=== PATIENT | male | born 1955 | race Caucasian/White ===

== ENCOUNTER → 2018-06-29 | Outpatient (CLI) | payer OTHER ==
--- NOTE | 2018-06-30 09:08 | XR ---
EXAMINATION TYPE: XR chest 2V DATE OF EXAM: 06/29/2018 COMPARISON: NONE TECHNIQUE: PA and lateral views submitted. HISTORY: Cough FINDINGS: No pneumothorax or pleural effusion. Hypertrophic and degenerative change of the spine. Arthropathy o f the shoulders. Limited inspiration with subsegmental changes at both lung bases. IMPRESSION: 1. Exam limited by inspiration demonstrates a prominent central interstitial pattern and basilar subs egmental consolidation. Mild venous congestion, pneumonitis or bronchitis in the differential diagnos is. Infiltrate at the lung bases suggestive..
== END ==
LOC: RADXRMAIN 16:01
PROVIDERS: ATTEND Internal Medicine
DX: R05 Cough (principal)
CPT/HCPCS: 71046

== ENCOUNTER 2018-10-02 05:40 | Emergency (ER) | payer MEDICARE ==
[2018-10-02] MEDS ORDERED: HYDROcodone/APAP 5-325MG 1 EACH TAB PO STA (05:59)
[2018-10-02] MEDS ORDERED: KETOROLAC 30 MG/ML 1 ML VIAL IVP STA (05:59)
--- NOTE | 2018-10-02 06:05 | ED ---
Upper Extremity HPI - General Source: patient, family, RN notes reviewed Mode of arrival: ambulatory Limitations: no limitations <Leopoldo Salmeron - Last Filed: 10/02/18 11:05> <Michael Gannon - Last Filed: 10/02/18 17:02> - General Chief Complaint: Extremity Injury, Upper Stated Complaint: arm pain Time Seen by Provider: 10/02/18 05:53 - History of Present Illness Initial Comments: This a 63-year-old male presents emergency Department chief been a right arm pain. Patient states that the pain is severe in nature started last couple days. Patient states he cannot tolerate this time. He does admit that he jumpe d out and his arm deformity states it feels very similar. He states the pain starts in his right elbow there is pain from his wrist all way to his axilla. Patient denies any discoloration swelling or paresthesias. Denies any trauma no chest pain or shortness breath. Patient states the pain is sometimes worse with any sort of touching or movement of his right elbow. (Leopoldo Salmeron) - Related Data Home Medications Medication Instructions Recorded Confirmed Atorvastatin Calcium [Lipitor] 10 mg PO HS 06/26/15 10/02/18 amLODIPine [Norvasc] 10 mg PO QAM 06/26/15 10/02/18 Levothyroxine Sodium [Synthroid] 150 mcg PO DAILY 10/02/18 10/02/18 Previous Rx's Medication Instructions Recorded Hydrocodone/Acetaminophen [[place] 1 tab PO Q6HR PRN #12 tab 10/02/18 5-325] Ibuprofen [Motrin] 600 mg PO Q8HR PRN #30 tab 10/02/18 Allergies Allergy/AdvReac Type Severity Reaction Status Date / Time morphine Allergy Unknown Verified 10/02/18 07:24 Review of Systems ROS Other: All systems not noted in ROS Statement are negative. <Leopoldo Salmeron - Last Filed: 10/02/18 11:05> ROS Other: All systems not noted in ROS Statement are negative. <Michael Gannon - Last Filed: 10/02/18 17:02> ROS Statement: Those systems with pertinent positive or pertinent negative responses have been documented in the HPI. Past Medical History Past Medical History: Hyperlipidemia, Hypertension, Thyroid Disorder Additional Past Medical History / Comment(s): GOUT History of Any Multi-Drug Resistant Organisms: None Reported Past Surgical History: Back Surgery, Hernia Repair Past Psychological History: No Psychological Hx Reported Smoking Status: Never smoker Past Alcohol Use History: Rare Past Drug Use History: None Reported <Leopoldo Salmeron - Last Filed: 10/02/18 11:05> General Exam Limitations: no limitations General appearance: alert, in no apparent distress Head exam: Present: atraumatic, normocephalic, normal inspection Neck exam: Present: normal inspection, full ROM. Absent: tenderness, meningismus, lymphadenopathy Respiratory exam: Present: normal lung sounds bilaterally. Absent: respiratory distress, wheezes, rales, rhonchi, stridor Cardiovascular Exam: Present: regular rate, normal rhythm, normal heart sounds. Absent: systolic murmur, diastolic murmur, rubs, gallop, clicks Extremities exam: Present: other (Tenderness to palpation of the right elbow and just proximal and distal this there is minimal swelling no erythema increase in warmth compared to the left, pulses equal bilaterally neurovascular intact) Neurological exam: Present: alert, oriented X3, CN II-XII intact, reflexes no rmal. Absent: motor sensory deficit Skin exam: Present: warm, dry, intact, normal color. Absent: rash <Leopoldo Salmeron - Last Filed: 10/02/18 11:05> Course <Michael Gannon - Last Filed: 10/02/18 17:02> Vital Signs 10/02/18 10/02/18 10/02/18 05:45 07:37 10:20 Temperature 97.5 F L 97.5 F L Pulse Rate 61 65 48 L Respiratory 20 18 Rate Blood Pressure 179/76 164/78 131/76 O2 Sat by Pulse 97 97 92 L Oximetry 10/02/18 11:21 Temperature 98.0 F Pulse Rate 56 L Respiratory 16 Rate Blood Pressure 155/81 O2 Sat by Pulse 95 Oximetry - Reevaluation(s) Reevaluation #1: 10/02/18 17:02 PA supervision: I proceeded [id number] evaluation the patient several occasions did present with complaints of right arm pain. The pain was reproducible on palpation of the rotator cuff and triceps and some proximal biceps tenderness. No neck or back pain at all. The workup was performed I did review the workup patient will be discharged with follow-up with his doctor did recommend an outpatient stress test. (Michael Gannon) Medical Decision Making - Lab Data Result diagrams: 10/02/18 06:25 10/02/18 06:25 <Leopoldo Salmeron - Last Filed: 10/02/18 11:05> - Lab Data Result diagrams: 10/02/18 06:25 10/02/18 06:25 <Michael Gannon - Last Filed: 10/02/18 17:02> - Medical Decision Making 63-year-old male presented for right arm pain. This is reproducible pain and C&C muscular nature. Patient did have complete workup including labs x-ray, EKG and repeat troponin with no acute findings. Patient did have some mild EKG changes and no old comparison though this felt to be chronic. Patient is advised follow-up outpatient for repeat EKG and stress test if he has any chest discomfort he is return here no chest pain prior or during the ER visit. (Leopoldo Salmeron) - Lab Data Lab Results 10/02/18 10/02/18 10/02/18 Range/Units 06:25 06:25 06:25 WBC 10.3 (3.8-10.6) k/uL RBC 5.78 (4.30-5.90) m/uL Hgb 15.6 (13.0-17.5) gm/dL Hct 47.4 (39.0-53.0) % MCV 82.1 (80.0-100.0) fL MCH 27.0 (25.0-35.0) pg MCHC 32.9 (31.0-37.0) g/dL RDW 15.2 (11.5-15.5) % Plt Count 224 (150-450) k/uL Neutrophils % 58 % Lymphocytes % 27 % Monocytes % 8 % Eosinophils % 4 % Basophils % 1 % Neutrophils # 5.9 (1.3-7.7) k/uL Lymphocytes # 2.8 (1.0-4.8) k/uL Monocytes # 0.8 (0-1.0) k/uL Eosinophils # 0.4 (0-0.7) k/uL Basophils # 0.1 (0-0.2) k/uL Sodium 138 (137-145) mmol/L Potassium 4.0 (3.5-5.1) mmol/L Chloride 103 (98-107) mmol/L Carbon Dioxide 28 (22-30) mmol/L Anion Gap 7 mmol/L BUN 19 (9-20) mg/dL Creatinine 0.92 (0.66-1.25) mg/dL Est GFR (CKD-EPI)AfAm >90 (>60 ml/min/1.73 sqM) Est GFR (CKD-EPI)NonAf 87 (>60 ml/min/1.73 sqM) Glucose 156 H (74-99) mg/dL Plasma Lactic Acid Sidney 1.2 (0.7-2.0) mmol/L Uric Acid 7.3 (3.5-8.5) mg/dL Calcium 9.3 (8.4-10.2) mg/dL Troponin I (0.000-0.034) ng/mL C-Reactive Protein 8.8 (<10.0) mg/L 10/02/18 10/02/18 Range/Units 06:25 10:04 WBC (3.8-10.6) k/uL RBC (4.30-5.90) m/uL Hgb (13.0-17.5) gm/dL Hct (39.0-53.0) % MCV (80.0-100.0) fL MCH (25.0-35.0) pg MCHC (31.0-37.0) g/dL RDW (11.5-15.5) % Plt Count (150-450) k/uL Neutrophils % % Lymphocytes % % Monocytes % % Eosinophils % % Basophils % % Neutrophils # (1.3-7.7) k/uL Lymphocytes # (1.0-4.8) k/uL Monocytes # (0-1.0) k/uL Eosinophils # (0-0.7) k/uL Basophils # (0-0.2) k/uL Sodium (137-145) mmol/L Potassium (3.5-5.1) mmol/L Chloride (98-107) mmol/L Carbon Dioxide (22-30) mmol/L Anion Gap mmol/L BUN (9-20) mg/dL Creatinine (0.66-1.25) mg/dL Est GFR (CKD-EPI)AfAm (>60 ml/min/1.73 sqM) Est GFR (CKD-EPI)NonAf (>60 ml/min/1.73 sqM) Glucose (74-99) mg/dL Plasma Lactic Acid Sidney (0.7-2.0) mmol/L Uric Acid (3.5-8.5) mg/dL Calcium (8.4-10.2) mg/dL Troponin I 0.015 <0.012 (0.000-0.034) ng/mL C-Reactive Protein (<10.0) mg/L - EKG Data EKG Comments: EKG performed sinus bradycardia rate of 48 VT 138 QRS 98 QT status QTC 46/434e no specific changes in V2-V5 (Leopoldo Salmeron) Disposition Is patient prescribed a controlled substance at d/c from ED?: Yes When asked, does pt state using other controlled substances?: No If prescribed controlled substance>3 days was MAPS reviewed?: Prescribed <3 Days If opioid is for acute pain is fill amount 7 days or less?: Yes If Rx opioid, was Start Talking consent form obtained?: Yes Time of Disposition: 11:12 <Leopoldo Salmeron - Last Filed: 10/02/18 11:05> <Michael Gannon - Last Filed: 10/02/18 17:02> Clinical Impression: Right arm pain, Musculoskeletal pain of right upper extremity Disposition: HOME SELF-CARE Condition: Stable Instructions (If sedation given, give patient instructions): Arm Pain (ED) Additional Instructions: Please return to the Emergency Department if symptoms worsen or any other concerns. Prescriptions: Ibuprofen [Motrin] 600 mg PO Q8HR PRN #30 tab PRN Reason: Pain Hydrocodone/Acetaminophen [[place] 5-325] 1 tab PO Q6HR PRN #12 tab PRN Reason: Pain Referrals: Shelton Roblero MD [Primary Care Provider] - 1-2 days Kieran Keith MD [STAFF PHYSICIAN] - 1-2 days
[2018-10-02 06:41] LABS: Basophils # (A) 0.1 k/uL (0-0.2); Basophils % (A) 1 %; Eosinophils # (A) 0.4 k/uL (0-0.7); Eosinophils % (A) 4 %; HCT 47.4 % (39.0-53.0); HGB 15.6 gm/dL (13.0-17.5); Lymphocytes # (A) 2.8 k/uL (1.0-4.8); Lymphocytes % (A) 27 %; MCHC 32.9 g/dL (31.0-37.0); MCV 82.1 fL (80.0-100.0); Mean Platelet Volume 8.7; Monocytes # (A) 0.8 k/uL (0-1.0); Monocytes % (A) 8 %; Neutrophils # (A) 5.9 k/uL (1.3-7.7); Neutrophils % (A) 58 %; Platelet Count 224 k/uL (150-450); RBC 5.78 m/uL (4.30-5.90); RDW 15.2 % (11.5-15.5); WBC 10.3 k/uL (3.8-10.6)
--- NOTE | 2018-10-02 06:45 | XR ---
EXAM: XR Right Elbow Complete, 3 or More Views CLINICAL HISTORY: right elbow pain. No known injury. TECHNIQUE: Frontal, lateral and oblique views of the right elbow. COMPARISON: No relevant prior studies available. FINDINGS: Bones/joints: Unremarkable. No acute fracture. No dislocation. Soft tissues: Unremarkable. IMPRESSION: No acute fracture
[2018-10-02 06:49] LABS: African American GFR (CKD) >90 (>60 ml/min/1.73 sqM); Anion Gap 7 mmol/L; Blood Urea Nitrogen 19 mg/dL (9-20); C Reactive Protein 8.8 mg/L (<10.0); Calcium 9.3 mg/dL (8.4-10.2); Carbon Dioxide 28 mmol/L (22-30); Chloride 103 mmol/L (98-107); Glucose 156 mg/dL (74-99); Sodium 138 mmol/L (137-145); Uric Acid 7.3 mg/dL (3.5-8.5)
[2018-10-02] MEDS ORDERED: ONDANSETRON 4 MG/2 ML VIAL IVP STA (07:12)
[2018-10-02] MEDS ORDERED: methylPREDNISolone SOD SUCCI 125 MG/2 ML VIAL IV STA (07:12)
[2018-10-02] MEDS ORDERED: HYDROmorphone 0.5 MG/0.5 ML SYRINGE IVP STA (07:12)
--- NOTE | 2018-10-02 09:26 | XR ---
EXAMINATION TYPE: XR chest 2V DATE OF EXAM: 10/02/2018 COMPARISON: 06/29/2018 TECHNIQUE: PA and lateral views submitted. HISTORY: Pain FINDINGS: The lungs are clear and there is no pneumothorax, pleural effusion, or focal pneumonia. Prominence of the upper mediastinum likely represents positioning and vasculature. Findings similar to the prior exam. Hypertrophic and degenerative change of the vertebral column. IMPRESSION: 1. No acute process.
[2018-10-02 11:25] VITALS: BP 155/81; PULSE 56; RESP 16; TEMP 98
== END 2018-10-02 11:21 | disposition home or self-care (01) ==
LOC: EC 05:40
DX: M79.601 Pain in right arm (principal); R94.31 Abnormal electrocardiogram [ECG] [EKG]; M79.89 Other specified soft tissue disorders; M25.521 Pain in right elbow; M79.631 Pain in right forearm; E78.5 Hyperlipidemia, unspecified; I10 Essential (primary) hypertension; E07.9 Disorder of thyroid, unspecified; Z88.5 Allergy status to narcotic agent; Z79.890 Hormone replacement therapy; Z79.899 Other long term (current) drug therapy; Z87.39 Personal history of other diseases of the musculoskeletal system and connective tissue; Y93.39 Activity, other involving climbing, rappelling and jumping off
CPT/HCPCS: 36415; 80048; 83605; 84550; 84484; 85025; 86140; 73080; 71046; 99284; 96374; 96375 ×3; J2930; J2405; J1885; J1170

== ENCOUNTER 2020-02-14 06:10 | Day surgery (SDC) | payer MEDICARE ==
[2020-02-10 15:30] VITALS: BMI 39.4
[~2020-02-14 06:10] MED LIST: ALPRAZolam 0.25 MG TAB PO PRN; ALPRAZolam 0.5 MG TAB PO PRN; ASPIRIN 325 MG TAB PO STA; NITROGLYCERIN SL TABS 0.4 MG TAB SUBLINGUAL PRN; SODIUM CHLORIDE 0.9% 1,000 ML in EMPTY BAG 1 BAG IV ONE
[2020-02-14] MEDS ORDERED: SODIUM CHLORIDE 0.9% 1,000 ML IV ONE (06:38)
[2020-02-14 06:57] LABS: Basophils # (A) 0.1 k/uL (0-0.2); Basophils % (A) 1 %; Eosinophils # (A) 0.4 k/uL (0-0.7); Eosinophils % (A) 5 %; HCT 47.1 % (39.0-53.0); HGB 15.2 gm/dL (13.0-17.5); Lymphocytes # (A) 2.3 k/uL (1.0-4.8); Lymphocytes % (A) 28 %; MCHC 32.3 g/dL (31.0-37.0); MCV 83.5 fL (80.0-100.0); Mean Platelet Volume 9.1; Monocytes # (A) 0.5 k/uL (0-1.0); Monocytes % (A) 6 %; Neutrophils # (A) 4.9 k/uL (1.3-7.7); Neutrophils % (A) 59 %; Platelet Count 184 k/uL (150-450); RBC 5.63 m/uL (4.30-5.90); RDW 14.6 % (11.5-15.5); WBC 8.4 k/uL (3.8-10.6)
[2020-02-14 07:06] LABS: Glucose,Whole Blood 159 mg/dL (75-99)
[2020-02-14 07:08] LABS: African American GFR (CKD) >90 (>60 ml/min/1.73 sqM); Anion Gap 3 mmol/L; Blood Urea Nitrogen 16 mg/dL (9-20); Calcium 8.8 mg/dL (8.4-10.2); Carbon Dioxide 30 mmol/L (22-30); Chloride 105 mmol/L (98-107); Glucose 177 mg/dL (74-99); Non-African American GFR(CKD) 82 (>60 ml/min/1.73 sqM); Sodium 138 mmol/L (137-145)
[2020-02-14 07:09] VITALS: RESP 16; TEMP 98.2
[2020-02-14 07:10] LABS: Potassium 4.9 mmol/L (3.5-5.1)
[2020-02-14] MEDS ORDERED: VERAPAMIL 2.5 MG/ML 2 ML AMP ONE (07:28)
[2020-02-14] MEDS ORDERED: LIDOCAINE 1% INJ 10MG/ML (20 ML MDV) ONE (07:28)
[2020-02-14] MEDS ORDERED: fentaNYL (PF) 50 MCG/ML 2 ML AMP ONE (07:29)
[2020-02-14] MEDS ORDERED: fentaNYL (PF) 50 MCG/ML 2 ML AMP IV ONE (07:35)
[2020-02-14] MEDS ORDERED: LIDOCAINE 1% INJ 10MG/ML (20 ML MDV) SQ ONE (07:36)
[2020-02-14] MEDS ORDERED: MIDAZOLAM 2 MG/2 ML VIAL IV ONE (07:39)
[2020-02-14] MEDS ORDERED: VERAPAMIL SYRINGE (5 MG/10 ML) INTRAARTER ONE ×2 (07:40→07:41)
[2020-02-14] MEDS ORDERED: HEPARIN SODIUM 1,000 UN/ML (10ML VL) IV ONE (07:47)
[2020-02-14] MEDS ORDERED: IOPAMIDOL-370 125ML BTL INJ ONE (07:53)
[2020-02-14] MEDS ORDERED: RX INFO: IV CONTRAST WAS GIVEN 1 EACH MISC MISCELLANE PRN (08:16)
[2020-02-14] MEDS ORDERED: SODIUM CHLORIDE 0.9% 1,000 ML IV SCH (08:30)
[2020-02-14] MEDS ORDERED: NON FORMULARY DRUG (Levothyroxine Sodium [Synthroid] 150 MCG Tablet) PO SCH (09:00)
[2020-02-14] MEDS ORDERED: METOPROLOL TARTRATE 25 MG TAB PO SCH (09:00)
[2020-02-14] MEDS ORDERED: ATORVASTATIN 40 MG TAB PO SCH (09:00)
[2020-02-14] MEDS ORDERED: amLODIPine 10 MG TAB PO SCH (09:00)
--- NOTE | 2020-02-14 09:29 | CC ---
CARDIAC CATHETERIZATION REPORT Mr. Hurst is a 65-year-old male with known history of hypertension, hyperlipidemia, and diabetes mellitus who recently underwent an EKG that showed anterolateral wall T- wave inversion. The patient had no associated symptoms. In view of his risk factors and his presentation, recommendation made regarding cardiac catheterization. The procedures, risks, and complication were discussed with the patient who is in full understanding and agreement. PROCEDURE: Patient was brought to the grass farm laborer in a fasting semi-sedated state after receiving fentanyl and Benadryl and achieving moderate conscious sedated state. Using Xylocaine anesthesia and Seldinger technique, a 6-Rwandan sheath was introduced in the right radial artery. Selective right and left coronary angiography performed using 5-Rwandan 3.5 bend right and left Izabella catheter, multiple views of the coronary artery including hemiaxial views were obtained. Following that, a 5-[place]wandan tight pigtail catheter was introduced into the left ventricle and a 30-degree WEINSTEIN view of the left ventricle was obtained. Following that, catheter and sheaths were removed. Hemostasis was obtained with deployment of a TR band. There was no immediate complication. Patient is returned to his room in stable condition. Of note, the patient had received 5000 units of intravenous heparin as well as intra-arterial verapamil. FINDINGS: FLUOROSCOPY: There was calcification involving the right coronary artery and the left anterior descending artery. LEFT MAIN: This is a large-sized vessel, bifurcating into left circumflex, left anterior artery. Left main coronary artery has no significant obstructive disease. LEFT ANTERIOR DESCENDING ARTERY: This is a large-sized vessel, reaching toward the apex with a wraparound apex segment. The left anterior descending artery has mild plaque approximately 10% to 20%. The rest of the vessel has no high-grade stenosis. LEFT CIRCUMFLEX: This is a nondominant large size vessel, giving rise to 3 obtuse marginal branch. The first one is very proximal. The left anterior descending artery has no evidence of high-grade stenosis. RIGHT CORONARY ARTERY: This is a large dominant vessel, heavily calcified proximal, very tortuous in the proximal segment. He has an area of stenosis of 60%-70% plaque in the proximal segment. The rest of the vessel has no high-grade stenosis. LEFT VENTRICULOGRAM: Left ventriculogram is performed in 30-degree WEINSTEIN view revealed normal size systolic function. Ejection fraction is 55%-60%. There was no significant mitral regurgitation. HEMODYNAMICS: There was no gradient across the aortic valve. The left ventricular end- diastolic pressure was 14 - 16 mmHg. CONCLUSION: 1. Heavily calcified right coronary artery with severe tortuosity proximally and has moderate severe stenosis in the proximal segment. 2. Mild disease in the LAD. 3. Normal left ventricular size and systolic function. RECOMMENDATION: At this time I will maximize his medical therapy and reassess his right coronary artery lesion to see if a percutaneous intervention is needed. Those findings and recommendation were discussed with the patient his family and they are in full understanding and agreement. MMODL / IJN: [id number] /
--- NOTE | 2020-02-14 09:35 | LTR ---
DATE OF SERVICE: 02/14/2020 RE: Edwin Hurst Dear Dr. Roblero; I had the pleasure to perform cardiac catheterization on Mr. Hurst at [facility] on February 14, 2020 and a full copy of the procedure note will be forwarded to you. In brief, he was found to have calcified right coronary artery with a very tortuous segment and moderate severe stenosis. At this time, I will maximize his medical therapy and depending on his progress, he would be reassessed for the need to undergo revascularization of the right coronary artery. I will keep you updated on his progress and thank you again for allowing me to participate in this patient's personal care. Please feel free to call for any questions. Sincerely yours, MD THERESA Banuelos / URIEL: [id number] /
[2020-02-14 13:24] VITALS: BP 155/87; PULSE 55
[2020-02-15] MEDS ORDERED: ASPIRIN 81 MG PO SCH (09:00)
[2020-02-17] MEDS ORDERED: ERGOCALCIFEROL 50,000 UNIT CAP PO SCH (09:00)
== END 2020-02-14 12:15 | disposition home or self-care (01) ==
LOC: CATHCVL 06:10
PROVIDERS: ATTEND Internal Medicine Interventional Cardiology
DX: I25.10 Atherosclerotic heart disease of native coronary artery without angina pectoris (principal); I77.1 Stricture of artery; R94.31 Abnormal electrocardiogram [ECG] [EKG]; I10 Essential (primary) hypertension; E78.2 Mixed hyperlipidemia; E11.9 Type 2 diabetes mellitus without complications; E66.9 Obesity, unspecified; R01.1 Cardiac murmur, unspecified; R60.0 Localized edema; Z79.899 Other long term (current) drug therapy; Z79.890 Hormone replacement therapy; Z79.84 Long term (current) use of oral hypoglycemic drugs; Z88.5 Allergy status to narcotic agent; Z87.891 Personal history of nicotine dependence; Z68.39 Body mass index [BMI] 39.0-39.9, adult; Z82.49 Family history of ischemic heart disease and other diseases of the circulatory system
CPT/HCPCS: 93458; 80048; 85025; C1769; C1894; J2250; J2001; J3010; J1644; Q9967

== ENCOUNTER 2022-06-05 08:24 | Emergency (ER) | payer MEDICARE ==
[2022-06-05 08:41] VITALS: BP 144/81; PULSE 77; RESP 18; TEMP 97.9
--- NOTE | 2022-06-05 09:02 | ED ---
General Adult HPI - General Chief complaint: Skin/Abscess/Foreign Body Stated complaint: Rash on Chest Time Seen by Provider: 06/05/22 08:43 Source: patient, RN notes reviewed Mode of arrival: ambulatory - History of Present Illness Initial comments: 67-year-old male presents to the emergency department with chief complaint of rash. He states that he noticed it one week ago on his left back which has progressed to front midline just below the nipple in a dermatomal pattern. He states the rash is painful and feels like pins and needles. He states that he applied Neosporin to his back. He has not taken anything for the pain. No alleviating or aggravating factors. Denies fever. Denies similar rash anywhere else. - Related Data Home Medications Medication Instructions Recorded Confirmed amLODIPine [Norvasc] 10 mg PO QAM 06/26/15 02/14/20 Levothyroxine Sodium [Synthroid] 150 mcg PO DAILY 10/02/18 02/14/20 Ergocalciferol (Vitamin D2) 1,250 mcg PO Q7D 02/10/20 02/10/20 [Vitamin D2 (50,000 Iu)] Gout Med (Unknown Name) 1 tab PO DAILY 02/10/20 02/14/20 metFORMIN HCL [Glucophage] 500 mg PO BID 02/10/20 02/14/20 Previous Rx's Medication Instructions Recorded Aspirin 81 mg PO DAILY chew 02/14/20 Atorvastatin [Lipitor] 40 mg PO DAILY #90 tab 02/14/20 Metoprolol Tartrate [Lopressor] 25 mg PO BID #180 tab 02/14/20 Nitroglycerin Sl Tabs [Nitrostat] 0.4 mg SUBLINGUAL Q5M PRN #25 tab 02/14/20 Allergies Allergy/AdvReac Type Severity Reaction Status Date / Time morphine Allergy Unknown Verified 06/05/22 08:41 Review of Systems ROS Statement: Those systems with pertinent positive or pertinent negative responses have been documented in the HPI. ROS Other: All systems not noted in ROS Statement are negative. Past Medical History Past Medical History: Diabetes Mellitus, Hyperlipidemia, Hypertension, Thyroid Disorder Additional Past Medical History / Comment(s): GOUT, hx sleep disorder 10-15 yrs ago. History of Any Multi-Drug Resistant Organisms: None Reported Past Surgical History: Back Surgery, Hernia Repair Past Anesthesia/Blood Transfusion Reactions: No Reported Reaction Past Psychological History: No Psychological Hx Reported Smoking Status: Never smoker Past Alcohol Use History: Rare Past Drug Use History: None Reported - Past Family History Father Family Medical History: Cancer Additional Family Medical History / Comment(s): Esophageal cancer. General Exam General appearance: alert, in no apparent distress ENT exam: Present: normal exam, mucous membranes moist Neck exam: Present: normal inspection. Absent: tenderness, meningismus, lympha denopathy Respiratory exam: Present: normal lung sounds bilaterally. Absent: respiratory distress, wheezes, rales, rhonchi, stridor Cardiovascular Exam: Present: regular rate, normal rhythm, normal heart sounds. Absent: systolic murmur, diastolic murmur, rubs, gallop, clicks Skin exam: Present: warm, dry, rash, vesicles (erythematous vesicles and crusts on left trunk from midline around to back in dermatomal pattern) Course Vital Signs 06/05/22 08:34 Temperature 97.9 F Pulse Rate 77 Respiratory 18 Rate Blood Pressure 144/81 O2 Sat by Pulse 95 Oximetry Medical Decision Making - Medical Decision Making Was pt. sent in by a medical professional or institution (, PA, SCHEDULE HANGER, urgent care, hospital, or long term...) When possible be specific @ -No Did you speak to anyone other than the patient for history (EMS, parent, family, police, friend...)? What history was obtained from this source @ -No Did you review nursing and triage notes (agree or disagree)? Why? @ -I reviewed and agree with nursing and triage notes Were old charts reviewed (outside hosp., previous admission, EMS record, old EKG, old radiological studies, urgent care reports/EKG's, long term records)? Report findings @ -No old charts were reviewed Differential Diagnosis (chest pain, altered mental status, abdominal pain women, abdominal pain men, vaginal bleeding, weakness, fever, dyspnea, syncope, headache, dizziness, GI bleed, back pain, seizure, CVA, palpatations, mental health, musculoskeletal)? @ -Shingles, rash, atopic dermatitis, this list is not all-inclusive EKG interpreted by me (3pts min.). @ -None X-rays interpreted by me (1pt min.). @ -None done CT interpreted by me (1pt min.). @ -None done U/S interpreted by me (1pt. min.). @ -None done What testing was considered but not performed or refused? (CT, X-rays, U/S, labs)? Why? @ -None What meds were considered but not given or refused? Why? @ -None Did you discuss the management of the patient with other professionals (professionals i.e. , PA, SCHEDULE HANGER, lab, RT, psych nurse, nephrology social worker, irrigation service technician, teacher, ammunition officer, director of casework)? Give summary @ -No Was smoking cessation discussed for >3mins.? @ -No Was critical care preformed (if so, how long)? @ -No Were there social determinants of health that impacted care today? How? (Homelessness, low income, unemployed, alcoholism, drug addiction, transportation, low edu. Level, literacy, decrease access to med. care, intermediate, rehab)? @ -No Was there de-escalation of care discussed even if they declined (Discuss DNR or withdrawal of care, Hospice)? DNR status @ -No What co-morbidities impacted this encounter? (DM, HTN, Smoking, COPD, CAD, Cancer, CVA, ARF, Chemo, Hep., AIDS, mental health diagnosis, sleep apnea, morbid obesity)? @ -None Was patient admitted / discharged? Hospital course, mention meds given and route, prescriptions, significant lab abnormalities, going to OR and other pertinent info. @ -Discharged. Patient presented with rash on trunk 1 week. Prescribed valtrex. discharged in stable condition. Undiagnosed new problem with uncertain prognosis? @ -No Drug Therapy requiring intensive monitoring for toxicity (Heparin, Nitro, Insulin, Cardizem)? @ -No Were any procedures done? @ -No Diagnosis/symptom? @ -Shingles Acute, or Chronic, or Acute on Chronic? @ -Acute Uncomplicated (without systemic symptoms) or Complicated (systemic symptoms)? @ -Uncomplicated Side effects of treatment? @ -No Exacerbation, Progression, or Severe Exacerbation? @ -No Poses a threat to life or bodily function? How? (Chest pain, [place], DC, pneumonia, PE, COPD, DKA, ARF, appy, cholecystitis, CVA, Diverticulitis, Homicidal, Suicidal, threat to staff... and all critical care pts) @ -No Disposition Clinical Impression: Shingles rash Disposition: HOME SELF-CARE Condition: Stable Is patient prescribed a controlled substance at d/c from ED?: No Referrals: Shelton Roblero MD [Primary Care Provider] - 1-2 days Time of Disposition: 09:29
[2022-06-05] MEDS ORDERED: ACET/COD 300 MG/30 MG STARTER PACK 6 TAB BTL PO STA (09:20)
== END 2022-06-05 09:55 | disposition home or self-care (01) ==
LOC: EC 08:24
DX: B02.9 Zoster without complications (principal); E11.9 Type 2 diabetes mellitus without complications; I10 Essential (primary) hypertension; E78.5 Hyperlipidemia, unspecified; E07.9 Disorder of thyroid, unspecified; M10.9 Gout, unspecified; Z79.84 Long term (current) use of oral hypoglycemic drugs; Z79.890 Hormone replacement therapy; Z79.899 Other long term (current) drug therapy; Z88.5 Allergy status to narcotic agent
CPT/HCPCS: 99283